=== PATIENT | female | born 1945 ===

== ENCOUNTER 2017-02-16 15:04 | Emergency (ER) | payer MEDICARE ==
[2017-02-16 18:16] VITALS: BP 130/57
--- NOTE | 2017-02-16 20:19 | UC ---
Edi Joya Abhishek, scribed for Demetris Everett MD on 02/16/17 at 1950 . General HPI - HPI Summary HPI Summary: This patient is a 72 year old F presenting to [facility] accompanied by with c/o of sinus headache, fatigue, and nausea since a week and half ago. Symptoms are worse since the past few days. Pt believes her visit to [place] may have been the cause of the symptoms. Pt states onset of symptoms on Thursday/Thursday a week and a half ago. The patient rates the pain 6/10 in severity. Symptoms aggravated by nothing. Symptoms alleviated by nothing. Patient reports sore throat, low grade temp, coughing (productive), decreased appetite, 4 days of sharp right flank pain, nausea, upset stomach described as "rumbles," palpitation, diffuse pain in the abd. Pt states she previously had diarrhea but now stool is loose. Patient denies rash. PMHx includes arthritis. - History of Current Complaint Chief Complaint: UCRespiratory Stated Complaint: COUGH/SINUS HEADACHE Time Seen by Provider: 02/16/17 18:41 Hx Obtained From: Patient Onset/Duration: Lasting Weeks - one week and a half ago, Still Present, Worse Since - few days ago Current Severity: Moderate Pain Intensity: 6 Associated Signs & Symptoms: Positive: Abdominal Pain - Sharp lower flank pain, difficulty eating, diffusive pain, Cough - Productive, Diarrhea - currently stool is "loose", Headache - Sinus DELGADO, Nausea, Other - Negative rash - Allergy/Home Medications Allergies/Adverse Reactions: Allergies Allergy/AdvReac Type Severity Reaction Status Date / Time Levofloxacin [From Levaquin] Allergy Unknown Verified 02/16/17 18:17 Reaction Details Chlordiazepoxide AdvReac Intermediate bouncing Verified 02/16/17 18:17 [From Librium] off the dickerson Meperidine [From Demerol HCl] AdvReac Mild works more Verified 02/16/17 18:17 strongly on her PMH/Surg Hx/FS Hx/Imm Hx - Additional Past Medical History Additional PMH: POSITIVE: Arthritis Cardiovascular History: Hypertension - Surgical History Surgical History: Yes Surgery Procedure, Year, and Place: both knees and both hips replaced between 5790-3403. T&A. thyroidectomy. gallbladder. carpal tunnel. hysterectomy. colostomy in past. cardioversion 2012 - Family History Known Family History: Negative: Seizure Disorder - Social History Alcohol Use: None Substance Use Type: None Smoking Status (MU): Never Smoked Tobacco Review of Systems Constitutional: Fatigue, Other - Low grade temp Skin: Negative Eyes: Negative ENT: Sore Throat, Nasal Discharge, Sinus Congestion Respiratory: Cough - Productive Cardiovascular: Palpitations Gastrointestinal: Abdominal Pain - Diffuse, Diarrhea, Nausea, Other - Upset stomach described as "rumbles" and decreaed appetite Genitourinary: Negative Motor: Negative Neurovascular: Negative Musculoskeletal: Other: - Sharp right flank pain Neurological: Headache - Sinus DELGADO Psychological: Negative All Other Systems Reviewed And Are Negative: Yes Physical Exam Triage Information Reviewed: Yes Vital Signs: Initial Vital Signs Temp 97.4 F 02/16/17 18:14 Pulse 91 02/16/17 18:14 Resp 18 02/16/17 18:14 BP 130/57 02/16/17 18:14 Pulse Ox 98 02/16/17 18:14 Vital Signs Reviewed: Yes - Additional Comments General: well-appearing, no pain distress Skin: warm, color reflects adequate perfusion, dry Head: normal Eyes: EOMI, VESTA ENT: Rhinorrhea posterior pharynx has mild erythema Neck: supple, nontender Respiratory: CTA, breath sounds present Cardiovascular: RRR Abdomen: soft, nontender Bowel: present Musculoskeletal: normal, strength/ROM intact Neurological: normal, sensory/motor intact, A&O x3 Psychological: affect/mood appropriate Course/Dx - Course Course Of Treatment: Allergies noted, medications reviewed, and elevated BP noted. - Differential Dx - Multi-Symptom Provider Diagnoses: SINUSITIS AND NAUSEA Discharge - Discharge Plan Condition: Stable Disposition: HOME Prescriptions: Amoxicillin/Clavulanate TAB* [Augmentin TAB 875*] 875 mg PO BID #20 tab Ondansetron ODT TAB* [Zofran 4 MG Odt TAB*] 4 mg PO Q6H PRN #10 tab.odt PRN Reason: Nausea Patient Education Materials: Sinusitis (ED) Referrals: Luis Monahan MD [Primary Care Provider] - Additional Instructions: FOLLOW UP WITH YOUR DOCTOR. GET RECHECKED FOR ANY WORSENING OF YOUR CONDITION OR QUESTIONS OR CONCERNS. The documentation as recorded by the Edi gibson Abhishek accurately reflects the service I personally performed and the decisions made by , Demetris Everett MD.
== END 2017-02-16 19:13 | disposition home or self-care (01) ==
LOC: UCEAST 15:04
DX: J32.9 Chronic sinusitis, unspecified (principal); I10 Essential (primary) hypertension; R11.0 Nausea
CPT/HCPCS: 99202; G0463

== ENCOUNTER 2018-07-26 19:56 | Emergency (ER) | payer MEDICARE ==
[2018-07-26 20:31] VITALS: BP 139/53
--- NOTE | 2018-07-26 20:58 | UC ---
Laceration HPI - HPI Summary HPI Summary: 73 y/o female present to the urgent care c/o cutting the distal aspect of her left thumb involving the nail s/p slamming his car door and injuring her thumb around 1930pm. Pt reports she is on Xarelto since Hx of A-fib. and she was concerned bleeding was not going to stop. However if has stooped w/ a lot of pressure. Pt is not UTD w/ tetanus vaccine. Pain is 8/10 at touch since half of the nail is involved. Pt can move her thumb w/o any difficulty and denies numbness or tingling sensation. She reports she just saw her PCP for her monthly check up, went to eat dinner and when she was getting in her car she slammed the door very hard. Pt denies, dizziness, SOB, chest pain, abdominal pain, N/V/D. - History Of Current Complaint Chief Complaint: UCLaceration Stated Complaint: FINGER LACERATION Time Seen by Provider: 07/26/18 20:43 Hx Obtained From: Patient Laceration Location: Finger - left thumb Mechanism Of Injury: Blunt Trauma Severity: Moderate Pain Intensity: 7 Pain Scale Used: 0-10 Numeric Aggravating Factors: Movement, Other: - touch Related History: Dominant Hand Right - Allergies/Home Medications Allergies/Adverse Reactions: Allergies Allergy/AdvReac Type Severity Reaction Status Date / Time cristhian Allergy Severe Anaphylatic Verified 07/26/18 20:32 Shock chlordiazepoxide Allergy "BOUNCING Verified 07/26/18 20:32 [From Librium] OFF THE DAMIAN" levofloxacin [From Levaquin] Allergy See Comment Verified 07/26/18 20:32 meperidine [From Demerol] Allergy WORKS Verified 07/26/18 20:32 STRONGLY ON HER Home Medications: Home Medications Acetaminophen [Pain Relief Extra Strength] 1,000 mg PO PRN 07/26/18 [History] Acetaminophen [Qc Acetaminophen 8 Hours] 650 mg PO PRN 07/26/18 [History Confirmed 07/26/18] Amoxicillin PO (*) [Amoxicillin 500 MG CAP*] 4 cap PO ONCE PRN 07/26/18 [ History Confirmed 07/26/18] Furosemide TAB* [Lasix TAB*] 40 mg PO DAILY 07/26/18 [History Confirmed 07/26/18 ] Levothyroxine TAB* [Synthroid TAB*] 100 mcg PO DAILY 07/26/18 [History Confirmed 07/26/18] Metoprolol Succinate XL TAB* [Toprol XL TAB*] 200 mg PO DAILY 07/26/18 [History Confirmed 07/26/18] Psyllium JUAN* [Metamucil JUAN*] 07/26/18 [History] Rivaroxaban TAB(*) [Xarelto 20 mg] 20 mg PO DAILY 07/26/18 [History Confirmed ] celeCOXIB CAP* [CeleBREX CAP*] 200 mg PO DAILY 07/26/18 [History Confirmed 07/26] PMH/Surg Hx/FS Hx/Imm Hx Previously Healthy: Yes Endocrine History: Dyslipidemia Cardiovascular History: Hypertension, Atrial Fibrillation Respiratory History: Asthma - Surgical History Surgical History: Yes Surgery Procedure, Year, and Place: both knees and both hips replaced between 5371-5612. T&A. thyroidectomy. gallbladder, RIGHT SHOULDER. carpal tunnel. hysterectomy. colostomy in past. cardioversion 2012 - Family History Known Family History: Positive: Cardiac Disease Negative: Seizure Disorder - Social History Occupation: Retired Lives: With Family Alcohol Use: None Substance Use Type: None Smoking Status (MU): Never Smoked Tobacco - Immunization History Hx Tetanus, Diphtheria Vaccination: No - can't recall when was last Tdap Review of Systems All Other Systems Reviewed And Are Negative: Yes Constitutional: Positive: Negative Skin: Positive: Other - laceration of left thumb involving half of the nail w/ a car door Eyes: Positive: Negative ENT: Positive: Negative Respiratory: Positive: Negative Cardiovascular: Positive: Negative Gastrointestinal: Positive: Negative Genitourinary: Positive: Negative Motor: Positive: Negative Neurovascular: Positive: Negative Musculoskeletal: Positive: Other: - left thumb pain s/p injury with a car door Neurological: Positive: Negative Psychological: Positive: Negative Is Patient Immunocompromised?: No Physical Exam - Summary Physical Exam Summary: Vital Signs Reviewed: Yes General: well developed, well nourished old female sitting in the examining table w/o any apparent distress Eye Exam: Normal Eyes: Positive: Conjunctiva Clear - PERRLA, EOMI, fundi grossly normal ENT: Positive: Normal ENT inspection, Hearing grossly normal, Pharynx normal, TMs normal Neck: Positive: Supple, Nontender, No Lymphadenopathy Respiratory: Positive: Chest non-tender, Lungs clear, Normal breath sounds, No respiratory distress Cardiovascular: Positive: RRR, No Murmur, Pulses Normal, Brisk Capillary Refill Abdomen Description: Positive: Nontender, No Organomegaly, Soft. Negative: CVA Tenderness (R), CVA Tenderness (L) Bowel Sounds: Positive: Present Musculoskeletal: Positive: Strength Intact, ROM Intact, No Edema Neurological: Positive: Alert, Muscle Tone Normal Psychological Exam: Normal Skin: Positive:Superficial horizontal laceration on the medial aspect of the distal left first phalanx across half of the nail about 1.0cm in size, bleeding stopped, no foreign body observed. tenderness to palpation, no ecchymosis around tip of the left thumb. FROM of left thumb and left hand, sensation intact, capillary refill brisk, and pulses WNL. Triage Information Reviewed: Yes Vital Signs: Initial Vital Signs Temp 97.3 F 07/26/18 20:26 Pulse 86 07/26/18 20:26 Resp 16 07/26/18 20:26 BP 139/53 07/26/18 20:26 Pulse Ox 98 07/26/18 20:26 Laceration Repair - Laceration Repair 1 Description: Linear Laceration Size After Repair: Length (cm) - 1.0cm Modified For Repair: No Cleansing Completed Via Routine Prep: Yes Irrigation With Pressure Irrigation Device: Yes Closure Material: Skin Adhesive, SteriStrips - 3 Closure Method: Single Layer Suture Of: Skin - nail Laceration Course/Dx - Course/Dx Course Of Treatment: 73 y/o female present to the urgent care c/o cutting the distal aspect of her left thumb involving the nail s/p slamming his car door and injuring her thumb around 1930pm. Pt reports she is on Xarelto since Hx of A-fib. and she was concerned bleeding was not going to stop. However if has stooped w/ a lot of pressure. Pt is not UTD w/ tetanus vaccine. Pain is 8/10 at touch since half of the nail is involved. Pt can move her thumb w/o any difficulty and denies numbness or tingling sensation. She reports she just saw her PCP for her monthly check up, went to eat dinner and when she was getting in her car she slammed the door very hard. Pt denies, dizziness, SOB, chest pain, abdominal pain, N/V/D. Hx obtained. Pt w/ Superficial laceration on the medial aspect of the distal left firs phalanx across half of the nail about 1.0cm in size, FROM of thumb on examination. Left thumb X-ray ordered to r/o fracture; Impression: Positive tuft fracture of left thumb. Final radiology reports still present. However Dr Everett agrees w/ reading. Thus, Pt w/ open fracture of the left thumb. LACERATION PROCEDURE NOTE: . Copious irrigation was done with saline and the wound explored. There was no FB or deep structure injury noted. wound cleaned w/ Iodine swabs. Laceration closed w/ skin adhesive and 3 steri-strips. Wound dressed w/ sterile gauze.The Pt tolerated the procedure well without adverse effects. Neurovascular intact and FROM of left thumb. Tdap ordered and applied by nurse. Pt Rx Keflex PO to prevent infection, first dose given at the clinic by the nurse. Pt tolerated well medication. Pt advised to f/u w/ Orhtpedic Dr Aguirre for further management on her open fracture of the left thumb. D/C instructions explained. Pt understood and agreed and left the clinic ambulating A&Ox3. - Differential Dx - Laceration/Wound Differental Diagnoses: Abrasion, Avulsion, Foreign Body, Fracture, Hematoma, Laceration, Puncture Wound, Tendon Laceration - Diagnosis Provider Diagnosis: Open fracture of tuft of distal phalanx of left thumb, Laceration of left thumb with damage to nail Discharge - Sign-Out/Discharge Documenting (check all that apply): Patient Departure - D/C home All imaging exams completed and their final reports reviewed: No - Discharge Plan Condition: Stable Disposition: HOME Prescriptions: Cephalexin CAP* [Keflex CAP*] 500 mg PO TID #20 cap Patient Education Materials: Finger Laceration (ED), Thumb Fracture (ED), Skin Adhesive Care (ED) Referrals: Hero CALDERON,Luis Garcia [Primary Care Provider] - 2 Days Radu Aguirre MD [Medical Doctor] - 1 Day Additional Instructions: 1-Please take Keflex PO as directed . first dose given tonight to prevent infection. Please take tylenol PO q6hrs as directed to alleviate pain and swelling. 2-Please apply ice, keep your thumb immobilized with the splint. Avoid heavy lifting or strenuous exercise. Keep wound clean and dry 3- Please f/u with Orthopedic DR Aguirre in 1-2 days for further evaluation and treatment on your thumb fracture. - Billing Disposition and Condition Condition: STABLE Disposition: Home
[2018-07-26] MEDS ORDERED: Tetan/Diph/Pertus SYR(Tdap)* 0.5 ML SYR(BOOSTRIX) use SYR IM ONE (21:59)
[2018-07-26] MEDS ORDERED: Cephalexin CAP* 500 MG PO ONE (21:59)
--- NOTE | 2018-07-27 10:49 | UC ---
- EKG/XRAY/CT XRAY: left thumb - Fracture distal phalanx of first digit Course/Dx - Diagnoses Provider Diagnoses: Open fracture of tuft of distal phalanx of left thumb, Laceration of left thumb with damage to nail Discharge - Sign-Out/Discharge Documenting (check all that apply): Post-Discharge Follow Up All imaging exams completed and their final reports reviewed: Yes - Discharge Plan Condition: Stable Disposition: HOME Prescriptions: Cephalexin CAP* [Keflex CAP*] 500 mg PO TID #20 cap Patient Education Materials: Finger Laceration (ED), Thumb Fracture (ED), Skin Adhesive Care (ED) Referrals: Hero CALDERON,Luis Garcia [Primary Care Provider] - 2 Days Radu Aguirre MD [Medical Doctor] - 1 Day Additional Instructions: 1-Please take Keflex PO as directed . first dose given tonight to prevent infection. Please take tylenol PO q6hrs as directed to alleviate pain and swelling. 2-Please apply ice, keep your thumb immobilized with the splint. Avoid heavy lifting or strenuous exercise. Keep wound clean and dry 3- Please f/u with Orthopedic DR Aguirre in 1-2 days for further evaluation and treatment on your thumb fracture. - Billing Disposition and Condition Condition: STABLE Disposition: Home
== END 2018-07-26 23:00 | disposition home or self-care (01) ==
LOC: UCEAST 19:56
DX: S62.522B Displaced fracture of distal phalanx of left thumb, initial encounter for open fracture (principal); S61.112A Laceration without foreign body of left thumb with damage to nail, initial encounter; W23.0XXA Caught, crushed, jammed, or pinched between moving objects, initial encounter; Y92.810 Car as the place of occurrence of the external cause; Z23 Encounter for immunization; I10 Essential (primary) hypertension; I48.91 Unspecified atrial fibrillation; Z79.01 Long term (current) use of anticoagulants; Z96.653 Presence of artificial knee joint, bilateral; Z96.643 Presence of artificial hip joint, bilateral; Z88.1 Allergy status to other antibiotic agents; Z91.018 Allergy to other foods; Z88.8 Allergy status to other drugs, medicaments and biological substances; Z88.5 Allergy status to narcotic agent
CPT/HCPCS: 12001; 90471; 90715; 99212; A9270-GY; G0463